=== PATIENT | male | born 1975 | race Caucasian/White ===

== ENCOUNTER 2017-10-10 07:08 | Day surgery (SDC) | payer SELFPAY, OTHER ==
[2017-10-10] VITALS (8 sets, daily range): BP systolic 120–149; BP diastolic 77–90; PULSE 66–92; RESP 16; TEMP 36.7–37.1; O2SAT 94–100; BMI 25.2
--- NOTE | 2017-10-10 08:40 | PCM.DC ---
You will use the following diet at home:: Regular Discharge Activity: Return to Normal Activity, - - Keep the inside of the ear dry Additional Activity Instructions:: Remove dressing tomorrow and discard. Change cotton ball as needed. May shower on 10/12/17 and get the incision wet. Allergies/Adverse Reactions: Allergies No Known Allergies Allergy (Verified 10/05/17 15:07) Medications to take at Discharge Vitamin B Complex 1 each PO DAILY 10/05/17 Primary Care Physician: Luisa Caban MD [Primary Care Provider] -
--- NOTE | 2017-10-10 08:45 | CHO_PTH ---
PATIENT: JOVANNY SNIDER LOC: [facility] – [place] U#:[id number] AGE/SX: 42/M ROOM: RE10/10/[address]: Dr. Bhavin Cross MD : 1975 BED: DIS: 10/10/2017 SPEC #: [id number] RECD: 10/11/17 08:38 STATUS: JAXON JOVANNY #: [id number] ULI: 10/10/17 08:[address]: Bhavin Cross DEPT: SURGICAL PATHOLOGY RECD BY: Dipak Duke ENTERED: 10/11/17 11:27 SP TYPE: CHOLESTEAT OTHR DR: Dr. Luisa Caabn MD Tissues: Soft tissues, NOS Procedures: Decalcification bone/plaque Surgery Specimen Level IV HEADER OPERATION: Tympanoplasty with mastoidectomy, radical and ossicular reconstruction PRE-OP DIAGNOSIS: Cholesteatoma of attic, right ear TISSUE SUBMITTED: Right ear - cholesteatoma MICROSCOPIC DIAGNOSIS Right ear cholesteatoma, excision: Epidermal inclusion cyst. Fragments of bone and cartilage with no significant pathologic change. AM:brice 10/12/17 MICROSCOPIC DESCRIPTION Slides are reviewed. GROSS DESCRIPTION Received in fixative is one container labeled with the patient's name and designated right ear cholesteatoma. The specimen consists of multiple irregular fragments of wolff soft tissue that in aggregate measure 2 x 0.5 x 0.1 cm. The specimen is totally submitted in one cassette after light decalcification. / MANNY:brice 10/11/17 TC:5 CPT: 31836, 77724
[2017-10-10] MEDS: Ciprofloxacin 0.3% 2.5ml Bottle 1 DRP (09:30)
[2017-10-10] MEDS: BACITRACIN/POLYMYXIN B 15 GM Tube 1 APPLIC (10:11)
[2017-10-10] MEDS: Ceftriaxone 1 GM/50 ML BAG IV (11:15)
--- NOTE | 2017-10-10 14:02 | OP.PCM_ITS ---
Report of Operation Date of Procedure: 10/10/17 Pre-Operative Diagnosis: right cholesteatoma. conductive hearing loss Post-Operative Diagnosis: same Surgery/Procedure Performed:: right tympanomastoidectomy (canal wall up) with ossicular reconstruction Description of Surgical Findings:: Intact facial nerve, Intact stapes. PORP (dornhoffer) placed. Low lying tegmen. Tegmen defect Type of Anesthesia:: General Anesthesiologist: Salomón Lucero Specimen's removed: right cholesteatoma Estimated Blood Loss (mL): minimal Description of Procedure: The patient was taken to the OR on 10/10/17. He was placed in the supine position on the OR table and given sufficient general anesthesia. The table was turned 90 degrees counter clockwise. The [facility] facial nerve monitor was used throughout the entire case. The right ear was prepped and draped steriley. 1% lidocaine with epinephrine was injected into the post auricular crease and tragal area. The operating microscope was used throughout. I then suctioned excess betadine from canal. A large cholesteatoma was seen superiorly. A large perforation existed as only the superior 40% of the tympanic membrane was present and involved with cholesteatoma. I then made a standard post auricular incision with a 15 blade. Hemostasis was achieved with bipoloar cautery. A plane was established on the temporalis. A standard T shaped incision was made. Temporalis fascia was harvested sharply and dried on a cutting block. A Lempert elevator was used to elevate the periosteum. The jan canal was entered posteriorly and the skin was elevated off of the bone. I then made incisions in the skin with round and straight bever blades. The vascular strip was then elevated out of the canal and placed in a self retaining retractor. The middle ear was entered sharply. There was cholesteatoma encasing the stapes , stapedial tendon and heading superiorly. I elected to perform mastoidectomy. A canal wall up mastoidectomy was completed using serially smaller cutting and jose burrs. The tegmen was very low lying. A small defect was placed in the tegmen. The dura was visualized but not breached. No CSF was encountered. The additus ad antrum was identified. No cholesteatoma was seen in the mastoid cavity. I then tediously removed cholesteatoma matrix from the oval window anteriorly sweeping this posteriorly. I then removed matrix over the stapes and stapedial tendon. Next, I was able to identify the cholesteatoma sac posteriorly in the area of the facial recess and sweep this anteriorly until it was removed. The remaining superior half of the incus was removed with the specimen. I elected to cut the malleus with a malleus nipper as the inferior tip was pressed onto the promontory. Next, I irrigated the middle ear and mastoid with saline. I elected to use a Dornhoffer prosthesis which fit perfectly onto the stapedial head. The middle ear was filled with cipro impregnated gelfoam. I then harvested tragal cartilage. I made an incision on the free edge of the tragus with a 15 blade. I then used sharp dissection to establish a plane medially and laterally. The cartilage was then harvested sharply. Hemostasis was achieved with bipolar cautery. I then irrigated the harvest site with saline. The incision was closed with 6-0 fast absorbing gut. A quilting stitch was placed through and through to close the space. Next, I cut the tragal cartilage into pieces with a 15 blade to create cartilage palisades. I large piece was placed anteriorly and lateral ( on top) of the Dornhoffer prosthesis. I then placed another piece in the attic. A small semilunar piece was placed in the posterior/superior quadrant. The remaining defect of tympanic membrane was then recreated with perichondrium which was placed in an underlay fashion inferiorly and posteriorly under the annulus. Antibiotic ointment was then filled in the canal laterally. The vascular strip canal skin was placed back into the jan canal. The periosteum was closed with 3-0 vicryl. The skin was closed with interrupted 4-0 vicryl subcuticular. Steri strips were applied to the incision. A Gilchrist dressing was applied. The patient was awoken and brought to the recovery room in stable condition. Blood loss minimal, replacement none. Sponge, needle and instrument count were correct at the end of the procedure.
[2017-10-10] MEDS: HYDROcodone Bitartrate/Apap 5/325 Tablet PO ×2 (15:49→15:50)
== END 2017-10-10 17:25 | disposition home or self-care (01) ==
LOC: SDC 07:16 → AC 07:17
PROVIDERS: Visit Provider Otolaryngology
PROC: (CPT 69642; principal; 2017-10-10 08:15)
DX: H71.01 Cholesteatoma of attic, right ear (principal); H90.2 Conductive hearing loss, unspecified; Z87.891 Personal history of nicotine dependence
CPT/HCPCS: 69644; 88304; 88305; 88311; J3010; J7120; J2405